=== PATIENT | female | born 1935 | race Caucasian/White ===

== ENCOUNTER → 2016-06-23 | Outpatient (CLI) | payer MEDICARE, OTHER ==
[~2016-06-23] MED LIST: CATAPRES-DPS0.2 MG PO; CLARITIN DPS10 MG PO; COLACE-DPS100 MG PO; NORCO 5-325 TA1 EACH PO; OCUVITE SOFTGE1 EACH PO; SYSTANE BALANCE10 ML OU; TENORMIN DPS50 MG PO; THERAPEUTIC MUL1 TAB PO; ZOCOR DPS20 MG PO
== END | disposition home or self-care (01) ==
LOC: RAD.S 08:46
DX: Z12.31 Encounter for screening mammogram for malignant neoplasm of breast (principal); R92.1 Mammographic calcification found on diagnostic imaging of breast